=== PATIENT | male | born 1985 | race Caucasian/White ===

== ENCOUNTER 2025-02-24 06:53 | Emergency (ER) | payer OTHER, SELFPAY ==
[2025-02-24 07:03] VITALS: BP 144/88; PULSE 79; RESP 20; TEMP 37.2; O2SAT 98
[2025-02-24 07:29] VITALS: BP 143/89; PULSE 71; RESP 15; O2SAT 98
--- NOTE | 2025-02-24 07:50 | ED.SKABFB ---
HPI - Skin/Abscess/Foreign Bdy General Chief complaint: Skin/Abscess/Foreign Body Stated complaint: Swollen R face Time Seen by Provider: 02/24/25 07:21 History of Present Illness HPI narrative: Patient presenting here with swelling to his right face that he noticed when he woke up today, it is very itchy, swollen, not significantly painful. Related Data Allergies Allergy/AdvReac Type Severity Reaction Status Date / Time Penicillins AdvReac Intermediate Itching Verified 02/24/25 07:43 clindamycin AdvReac Swelling Verified 02/24/25 07:43 Review of Systems Review of Systems: All systems reviewed & are unremarkable except as noted in HPI and below Exam Narrative: EXAMINATION OF ORGAN SYSTEMS/BODY AREAS: Constitutional: Vital signs per nursing GENERAL:[No acute distress, non-toxic appearing.] HEAD: Normal with no signs of head trauma. EYES: Painless normal EOMI, conjunctiva normal ENT: About 5 cm area swelling/induration to the right medial cheek; no significant tenderness to palpation. Extremely poor dentition especially to upper right front teeth LUNGS: Nonlabored breathing. HEART: [Regular rate and rhythm] ABD: [Soft], [nontender to palpation] EXT: Normal range of motion SKIN: Cheek swelling/induration as described above NEURO: [Alert. No gross focal sensory or strength deficits.] PSYCH: Normal affect Course Vital Signs Vital signs: Vital Signs Temperature 98.9 F 02/24/25 07:03 Pulse Rate 79 02/24/25 07:03 Respiratory Rate 20 02/24/25 07:03 Blood Pressure 144/88 H 02/24/25 07:03 Pulse Oximetry 98 02/24/25 07:03 Temperature 98.9 F 02/24/25 07:03 Pulse Rate 71 02/24/25 07:29 Respiratory Rate 15 02/24/25 07:29 Blood Pressure 143/89 H 02/24/25 07:29 Pulse Oximetry 98 02/24/25 07:29 [facility] MDM Narrative Medical decision making narrative: Patient presenting with swelling to his right face, on exam there is increased induration and swelling to the area that is not significantly tender around the right side of his face, has pain normal extraocular movements, no involvement of the eye, he does have extremely poor dentition especially the right upper front teeth, given the description of the symptoms and the rapid onset, I suspect this is more consistent with a localized reaction to possible insect state, however given the poor dentition and induration, I also want to cover for possible odontogenic abscess/cellulitis, antibiotics are ordered, as patient is potentially allergic to penicillins though he cannot tell me more other than something makes my tummy hurt so I will start him on cefdinir and Flagyl, and give him NSAIDs, antihistamines. Prescription provided along with follow-up information for ENT and instructions to follow-up with dentist, along with strict return precautions in person and on paper. Patient agreeable to plan. Differential Diagnosis Differential Diagnosis: Abscess including a Dr. Cooper infection, preseptal cellulitis, localized reaction to insect bite Discharge Plan Discharge Clinical Impression: Facial swelling Patient Disposition: Home Condition: Stable Instructions: Antibiotic Form, Dental Abscess (ED), Insect Bite or Sting (ED) Additional Instructions: Take the medications as prescribed and follow up with ENT and dentist. Take the medications as prescribed, if you start developing worsening symptoms especially worsening swelling, pain, especially with movement of your eye or opening your mouth or anything else concerning, return to the ER immediately. Patient Language: Guamanian Prescriptions: New ibuprofen 600 mg tablet 600 mg PO TID PRN (Reason: fever or pain) Qty: 30 0RF loratadine 10 mg tablet 10 mg PO DAILY Qty: 30 0RF amoxicillin-pot clavulanate 875-125 mg tablet 1 tablet PO Q12H Qty: 14 0RF cefdinir 300 mg capsule 300 mg PO Q12H Qty: 14 0RF metronidazole 500 mg tablet 500 mg PO Q8H 7 Days Qty: 21 0RF ibuprofen 600 mg tablet 600 mg PO TID PRN (Reason: fever or pain) Qty: 30 0RF loratadine 10 mg tablet 10 mg PO DAILY Qty: 30 0RF Follow-up/Referrals: Espinoza Palma MD [Physician, Ear, Nose, Throat] - 2 Days PHYSICIAN,METALLURGY TEACHER [Primary Care Provider, Internal Medicine]
[2025-02-24] MEDS: Please add drug allergy info to patient profile. 1 EACH XX (07:51)
--- OUTSIDE RECORDS SUMMARY | 2025-02-24 07:54 | XMS_ITS | Clinical Summary ---
Author Organization [facility] Address [address] [place] [address] Care Team Providers Care Networking Technician Name Role Phone No, Physician Primary Care Provider [phone] Allergies Active Allergy Reactions Criticality Noted Date Comments Clindamycin Angioedema High 03/23/2024 Penicillins Other (See comments) Low 10/07/2023 Unsure because he was a child Medications clindamycin (CLEOCIN) 150 mg capsule Take 1 capsule (150 mg total) by mouth every 6 (six) hours 28 capsule 10/07/19 24 Active naproxen (NAPROSYN) 500 mg tablet Take 1 tablet (500 mg total) by mouth 2 (two) times a day with meals 30 tablet 10/07/19 24 Active lidocaine viscous (XYLOCAINE) 2 % solution Apply 15 mL to the mouth or throat every 3 (three) hours 200 mL 10/07/19 24 Active ondansetron ODT (ZOFRAN-ODT) 4 mg disintegrating tablet Take 1 tablet (4 mg total) by mouth every 8 (eight) hours as needed for nausea or vomiting 20 tablet 10/07/19 24 Active traMADoL (ULTRAM) 50 mg tabletIndications: Pain, dental Take 1 tablet (50 mg total) by mouth every 4 (four) hours as needed for pain 20 tablet 10/08/19 24 Active naproxen (NAPROSYN) 500 mg tablet Take 1 tablet (500 mg total) by mouth 2 (two) times a day with meals 30 tablet 12/28/19 25 Active lidocaine (LIDODERM) 5 % Place 1 patch on the skin daily for 12 hours for 14 days Remove & discard patch within 12 hours or as directed by . 14 patch 12/28/19 25 Active methocarbamoL (ROBAXIN) 500 mg tablet Take 1 tablet (500 mg total) by mouth 2 (two) times a day 20 tablet 12/28/19 25 Active HYDROcodone-acetam inophen (NORCO) 5-325 mg per tabletIndications: Pain Take 1 tablet by mouth every 6 (six) hours as needed for pain 10 tablet 12/28/19 25 Active cephalexin (KEFLEX) 500 mg capsule Take 1 capsule (500 mg total) by mouth 4 (four) times a day for 7 days 28 capsule 02/11/20 25 025 Discontinu ed(Other) cephalexin (KEFLEX) 500 mg capsule Take 1 capsule (500 mg total) by mouth 4 (four) times a day for 6 days 24 capsule 02/17/20 25 025 Active Problems No known active problems Encounters Date Type Department Care Team Description 02/16/2025 Telephone [facility] at [address] [address] Diana Charles NP 02/10/2025 2: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 SPRAYER Office Visit [facility] Medical [facility] at [address] [address] Rachel Ledesma PA Laceration of finger of left hand without foreign body without damage to nail, unspecified finger, initial encounter (Primary Dx); Vasovagal episode 12/27/2024 2:32 PM CDT - 12/27/2024 2:54 PM CDT Emergency [facility] [address] [place] [address] Midline low back pain without sciatica, unspecified chronicity (Primary Dx) Discharge Disposition: Discharge to home or self care from Last 3 Months Social History Tobacco Use Types Packs/Day Years Used Date Smoking Tobacco: Never Assessed Personal Safety Answer Date Recorded Have you ever been in or are you currently in a harmful physical or emotional relationship or is someone making you feel afraid or unsafe? Denies 12/27/2024 Sex and Gender Information Value Date Recorded Sex Assigned at Not on file Legal Sex Male 12:11 PM CDT Gender Identity Not on file Sexual Orientation Not on file Last Filed Vital Signs Vital Sign Reading Time Taken Comments Blood Pressure 118/76 02/10/2025 2:15 PM METAL SPR[employer]ER Pulse 60 02/10/2025 2:15 PM METAL SPR[employer]ER Temperature 36.6 C (97.9 F) 02/10/2025 2:15 PM METAL SPRAYER Respiratory Rate 20 02/10/2025 2:15 PM METAL SPRAYER Oxygen Saturation 98% 02/10/2025 2:15 PM METAL SPRAYER Inhaled Oxygen Concentration - - Weight 104.3 kg (230 lb) 02/10/2025 2:15 PM METAL SPRAYER Height 177.8 cm (5' 10) 12/27/2024 12:10 PM CDT Body Mass Index 33 12/27/2024 12:10 PM CDT Plan of Treatment Health Maintenance Due Date Last Done Comments Depression Screening 1985 Hepatitis C Screening 1985 DTaP/Tdap/Td Vaccine (1 - Tdap) 1996 Varicella Vaccines (1 of 2 - 13+ 2-dose series) 1998 Hepatitis B Screening 12/26/2003 Regular Well Visit/Exam 18-64 12/26/2003 HPV Vaccines (1 - 3-dose SCD M series) 2012 Influenza Vaccine (#1) 2024 Pneumococcal vaccine <65 Aged Out No longer eligible based on patient's age to complete this topic Procedures Procedure Name Priority Date/Time Associated Diagnosis Comments CT LUMBAR SPINE WO CONTRAST ED 12/27/2024 2:01 PM CDT from Last 3 Months Results * CT Lumbar Spine WO Contrast (12/27/2024 2:01 PM CDT) Anatomical Region Laterality Modality Spine N/A Computed Tomogra phy 12/27/2024 2:05 PM CDT Narrative 12/27/2024 2:08 PM CDT EXAM DESCRIPTION: CT LUMBAR SPINE WO CONTRAST REASON FOR STUDY: [place] and experienced acute low back pain this morning. No provided focal neurologic deficits. No provided past medical or surgical history. TECHNIQUE: Axial images acquired through the lumbar spine without intravenous contrast. Reconstructed coronal and sagittal MPR images reviewed. All images stored on PACS. Automated exposure control was used as a dose optimization technique for this examination. COMPARISON: No prior imaging of the lumbar spine available at time of interpretation. FINDINGS: SEGMENTATION: No lumbosacral transitional anatomy. The lowest fully formed intervertebral disc level is labeled L5-S1. ALIGNMENT: Grade 1 anterolisthesis L5 on S1. VERTEBRAE: No acute fracture. Vertebral body heights maintained. Predominantly mild spondylosis. DISC HEIGHT: Multilevel variable predominantly mild loss intervertebral disc height. HARDWARE: None in the lumbar spine. INDIVIDUAL DISC LEVELS: No osseous spinal canal stenosis. No osseous neural foraminal stenosis. VISUALIZED RIBS: No acute fracture. SOFT TISSUES: No acute abnormality. OTHER: No other significant finding. IMPRESSION: No acute fracture of the lumbar spine with constellation of spondylolisthesis, spondylosis, and degenerative disc disease. THIS IS AN ELECTRONICALLY VERIFIED FINAL REPORT 12/27/2024 2:08 PM - Electronically signed by Gabe Dykes M.D. JV: JV Report ID: [id number] Reading Location: [id number] Procedure Note Gabe Dykes MD - 12/27/2024 EXAM DESCRIPTION: CT LUMBAR SPINE WO CONTRAST REASON FOR STUDY: [place] [employer] [place] and experienced acute low back pain thismorning. No provided focal neurologic deficits. No provided past medical orsurgical history. TECHNIQUE: Axial images acquired through the lumbar spine withoutintravenous contrast. Reconstructed coronal and sagittal MPR images reviewed. Allimages stored on PACS. Automated exposure control was used as a dose optimization technique forthis examination. COMPARISON: No prior imaging of the lumbar spine available at time of interpretation. FINDINGS: SEGMENTATION: No lumbosacral transitional anatomy. The lowest fullyformed intervertebral disc level is labeled L5-S1. ALIGNMENT: Grade 1 anterolisthesis L5 on S1. VERTEBRAE: No acute fracture. Vertebral body heights maintained. Predominantly mild spondylosis. DISC HEIGHT: Multilevel variable predominantly mild loss intervertebraldisc height. HARDWARE: None in the lumbar spine. INDIVIDUAL DISC LEVELS: No osseous spinal canal stenosis. No osseousneural foraminal stenosis. VISUALIZED RIBS: No acute fracture. SOFT TISSUES: No acute abnormality. OTHER: No other significant finding. IMPRESSION: No acute fracture of the lumbar spine with constellation of spondylolisthesis, spondylosis, and degenerative disc disease. THIS IS AN ELECTRONICALLY VERIFIED FINAL REPORT 12/27/2024 2:08 PM - Electronically signed by Gabe Dykes M.D. JV: JV Report ID: [id number] Reading Location: [id number] [facility] CT PROCEDURES Final Result from Last 3 Months Insurance [facility] Care Teams Networking Technician Relationship Specialty Start Date End Date No, Physician PCP - General 10/07/23
[2025-02-24] MEDS: IBUPROFEN 600 MG TABLET PO (08:13)
[2025-02-24] MEDS: LORATADINE 10 MG TABLET PO (08:13)
[2025-02-24] MEDS: CEFDINIR 300 MG CAPSULE PO (08:14)
[2025-02-24 08:18] VITALS: BP 136/82; PULSE 68; RESP 15; O2SAT 99
== END 2025-02-24 08:18 | disposition home or self-care (01) ==
LOC: ANHED 07:49
PROVIDERS: Emergency Provider Emergency Medicine
DX: R22.0 Localized swelling, mass and lump, head (principal)
CPT/HCPCS: 99283; A9270